=== PATIENT | male | born 1945 | race Caucasian/White ===

== ENCOUNTER → 2018-04-04 | Outpatient (CLI) | payer MEDICARE, BC ==
[2018-04-04 17:06] LABS: LDL Cholesterol,Calculated 72.4 mg/dL (0.0-131.0); VLDL Calculation 18.6 mg/dL (5.00-40.00)
== END | disposition home or self-care (01) ==
LOC: LABWHC1 09:26
PROVIDERS: ATTEND Internal Medicine Clinical Cardiac Electrophysiology
DX: E78.5 Hyperlipidemia, unspecified (principal); I25.10 Atherosclerotic heart disease of native coronary artery without angina pectoris; Z95.1 Presence of aortocoronary bypass graft
CPT/HCPCS: 36415; 80061; 82550

== ENCOUNTER → 2019-09-01 | Outpatient (CLI) | payer MEDICARE ==
--- NOTE | 2019-09-01 16:26 | XR ---
EXAMINATION TYPE: XR chest 2V DATE OF EXAM: 09/01/2019 COMPARISON: September 07, 2015 HISTORY: Shortness of breath TECHNIQUE: Frontal and lateral views of the chest are obtained. FINDINGS: Scattered senescent parenchymal changes noted. Hyperinflation compatible with COPD. No evidence for infiltrate. No evidence for atelectasis. Heart size is stable. Mediastinal structures are stable and grossly unremarkable. No evidence for hilar prominence. Degenerative changes dorsal spine. IMPRESSION: 1. No evidence for acute pulmonary disease.
== END | disposition home or self-care (01) ==
LOC: RADXRMAIN 15:41
PROVIDERS: ATTEND Otolaryngology
DX: Z13.6 Encounter for screening for cardiovascular disorders (principal)
CPT/HCPCS: 71046

== ENCOUNTER 2020-05-06 07:11 | Day surgery (SDC) | payer MEDICARE ==
[2020-05-03 11:56] VITALS: BMI 30.8
--- NOTE | 2020-05-05 22:12 | P.HPIHPCON ---
History of Present Illness H&P Date: 05/05/20 Chief Complaint: Prostate Cancer Mr Martinez is a 74 yo male with hx of skyler 7 (3+4) prostate Cancer, he elected to proceed with EBRT. I discussed with him the option of doing SpaceOR placement. Discussed with him the purpose of SpaceOR is to reduce rectal toxicity to the rectum. Discussed with him the surgery in details, he understood that he might still develop radiation proctitis even with SpaceOR. He understood risk of bleeding, infection. He understood all risks and agreed to proceed. Consent for Procedure: I have explained the operation/procedure to the patient, including the risks, benefits, side effects, alternative therapies (including not receiving the proposed treatment or service), the likelihood of the patient achieving his/her goals, and potential recuperation problems for the procedure/sedation/analgesia, as well as any blood products, if indicated. I also explained to the patient the risks, benefits and side effects of the alternatives, as well as the risks related to not receiving the proposed procedure, care, treatment, or services. Past Medical History Past Medical History: Coronary Artery Disease (CAD), Cancer, CVA/TIA, GERD/Reflux, Hyperlipidemia, Hypertension Additional Past Medical History / Comment(s): prostate ca, CVA post heart cath, states no residual effects History of Any Multi-Drug Resistant Organisms: None Reported Past Surgical History: Back Surgery, Coronary Bypass/CABG, Heart Catheterization Additional Past Surgical History / Comment(s): colonscopy, CABG x3, left carotid endartectomy, "screws in back" Past Anesthesia/Blood Transfusion Reactions: No Reported Reaction Smoking Status: Former smoker - Past Family History Mother Family Medical History: Cancer Sister(s) Family Medical History: Cancer Medications and Allergies Home Medications Medication Instructions Recorded Confirmed Type Alirocumab [Praluent Pen] 75 mg SQ Q15D 05/03/20 05/03/20 History Aspirin [Adult Low Dose Aspirin EC] 81 mg PO DAILY 05/03/20 05/03/20 History Losartan Potassium [Cozaar] 25 mg PO QAM 05/03/20 05/03/20 History Omeprazole [PriLOSEC] 20 mg PO QAM 05/03/20 05/03/20 History Sertraline [Zoloft] 100 mg PO QAM 05/03/20 05/03/20 History Allergies Allergy/AdvReac Type Severity Reaction Status Date / Time clopidogrel Allergy Rash/Hives Verified 05/03/20 11:58 Surgical - Exam - General well developed, well nourished - Eyes PERRL, normal ocular movement - Respiratory normal expansion, normal respiratory effort - Psychiatric oriented to time, oriented to person, oriented to place Assessment and Plan Assessment: 74 yo male with hx of prostate cancer -OR for SpaceOR placement
[~2020-05-06 07:11] MED LIST: DEXAMETHASONE SOD PHOSPHATE 4 MG/ML 1 ML VIAL IV ONE; HYDROmorphone 0.5 MG/0.5 ML SYRINGE IVP PRN; LACTATED RINGERS 1,000 ML IV SCH; ONDANSETRON 4 MG/2 ML VIAL IVP ONE
[2020-05-06 08:05] VITALS: TEMP 98
[2020-05-06] MEDS ORDERED: LIDOCAINE 1% (10MG/ML) FOR IV START INTRADERMA ONE (08:14)
[2020-05-06] MEDS ORDERED: MIDAZOLAM 2 MG/2 ML VIAL ONE (08:31)
[2020-05-06] MEDS ORDERED: fentaNYL (PF) 50 MCG/ML 2 ML AMP ONE (08:31)
[2020-05-06] MEDS ORDERED: PROPOFOL 10 MG/ML 20 ML VIAL IV ONE (08:31)
[2020-05-06] MEDS ORDERED: LIDOCAINE 2% (PF) 20 MG/ML 2 ML VIAL SQ ONE ×2 (08:48)
--- NOTE | 2020-05-06 09:13 | P.OP ---
Date of Procedure: 05/06/20 Preoperative Diagnosis: Adenocarcinoma of the prostate Postoperative Diagnosis: Same Procedure(s) Performed: SpaceOAR Implant Anesthesia: MAC Surgeon: Sivakumar Pitts Estimated Blood Loss (ml): 5 IV fluids (ml): 300 Pathology: none sent Condition: stable Disposition: PACU Indications for Procedure: Mr. Martinez is a 74 yo male with Maite 7 (3+4) prostate cancer. He has elected to proceed with EBRT and now comes for SpaceOAR implant to reduce rectal [place] Operative Findings: 12 mm separation created between prostate and rectum. Description of Procedure: The patient was taken to the operating room and placed in the dorsolithotomy position, with his legs supported in Isak stirrups. The external genitalia was prepped and draped sterilely. The Bruel and Kjaer transrectal ultrasound probe was placed intrarectally. The prostate was imaged. The probe was then placed within the stabilizing stand. A spinal needle was advanced under ultrasonic guidance to the level of the urogenital diaphragm, and lidocaine was used to infiltrate the tissues as the needle was withdrawn. Next, the SpaceOAR needle was passed through the midline of the perineum, 1-2 cm anterior to the anal opening. The needle was slowly advanced under ultrasonic guidance until the needle tip was located within the fat plane between the prostate and rectum, at the level of the mid prostate gland. The needle was confirmed to be midline on the axial imaging. A small amount of normal saline was injected for hydrodissection. Next, the SpaceOAR components were mixed and loaded into the Y connector per protocol. The Y connector was then connected to the needle, and the components were injected slowly over a course of approximately 12 seconds. A total of 10 ml was injected. Significant distance was created between the prostate and rectum, as desired. It should be noted that at no point was there any concern of rectal perforation. The needle was withdrawn, as well as the transrectal ultrasound probe, and the procedure was terminated. The patient tolerated the procedure well and was taken to the recovery room in stable condition.
[2020-05-06 09:39] VITALS: PULSE 63; RESP 18
[2020-05-06 10:11] VITALS: BP 182/85
== END 2020-05-06 10:25 | disposition home or self-care (01) ==
LOC: OR 07:11
PROVIDERS: ATTEND Urology
DX: C61 Malignant neoplasm of prostate (principal); I25.10 Atherosclerotic heart disease of native coronary artery without angina pectoris; K21.9 Gastro-esophageal reflux disease without esophagitis; E78.5 Hyperlipidemia, unspecified; I10 Essential (primary) hypertension; K08.89 Other specified disorders of teeth and supporting structures; Z88.8 Allergy status to other drugs, medicaments and biological substances; Z86.73 Personal history of transient ischemic attack (TIA), and cerebral infarction without residual deficits; Z98.890 Other specified postprocedural states; Z95.1 Presence of aortocoronary bypass graft; Z98.62 Peripheral vascular angioplasty status; Z87.891 Personal history of nicotine dependence; Z79.899 Other long term (current) drug therapy; Z79.82 Long term (current) use of aspirin; Z80.9 Family history of malignant neoplasm, unspecified
CPT/HCPCS: 55874; C1889; J2250; J0690; J2405; J3010; J2704; J2001

== ENCOUNTER → 2020-07-20 | Outpatient (CLI) | payer MEDICARE | END | disposition home or self-care (01) | LOC: LABWHC1 12:04 | PROVIDERS: ATTEND Radiology Radiation Oncology | DX: C61 Malignant neoplasm of prostate (principal); Z87.891 Personal history of nicotine dependence | CPT/HCPCS: 36415; 84153 ==

== ENCOUNTER → 2021-05-14 | Outpatient (CLI) | payer MEDICARE ==
--- NOTE | 2021-05-15 21:43 | MR ---
EXAMINATION TYPE: MR brain and iac wo/w con DATE OF EXAM: 05/14/2021 COMPARISON: CT brain April 08, 2015. HISTORY: R variable ear fullness, fluctuating tinnitis, hearing loss, mastoiditis TECHNIQUE: Multiplanar, multisequence images of the brain and brainstem along with the internal auditory canals are all performed without and with IV contrast, utilizing 10 mL intravenous Gadavist . FINDINGS: Diffusion weighted images demonstrate no evidence of a recent infarct or other diffusion ab normality. There is mild ventricular and sulcal prominence. Multifocal and confluent areas of T2 hyp erintensity are seen throughout the white matter bilaterally greatest at periventricular levels. Ther e is now old infarct inferior right occipital lobe near axial image 14 with focal encephalomalacia. Midline structures demonstrate normal morphology. The craniocervical junction appears within normal limits. Post contrast images demonstrate no abnormal enhancement. The dural venous sinuses appear pa tent. Mild mucosal thickening ethmoid sinuses bilaterally is present. Globes are intact bilaterally. Abnormal fluid signal in the left mastoid air cells greatest posteriorly and inferiorly. Below cochle ar complexes are symmetric and felt within normal limits. There is no suspicious enhancing cerebellop ontine angle mass identified bilaterally. IMPRESSION: 1. Abnormal fluid signal left mastoid air cells raises concern for mastoiditis at this level. Correla te clinically. No abnormal enhancing mass is identified. 2. Mild diffuse cerebral atrophy and mild to moderate chronic small vessel ischemic change with old i nfarct inferior right occipital lobe noted.
== END | disposition home or self-care (01) ==
LOC: RADMRIMAIN 09:36
PROVIDERS: ATTEND Nurse Practitioner Family
DX: G31.9 Degenerative disease of nervous system, unspecified (principal); I67.82 Cerebral ischemia; R93.0 Abnormal findings on diagnostic imaging of skull and head, not elsewhere classified
CPT/HCPCS: 70553; A9585

== ENCOUNTER → 2024-05-29 | Outpatient (CLI) | payer MEDICARE ==
--- NOTE | 2024-05-31 18:27 | PE ---
EXAMINATION TYPE: PET CT fusion skull to thigh DATE OF EXAM: 05/29/2024 CLINICAL INDICATION:Male, 78 years old with history of C61 prostate ca; TECHNIQUE: Following the intravenous administration of 5.07 mCi of Ga-68 Illuccix (PSMA), whole bod y images are performed from the skull base to the Mid thigh. Images are reviewed on the computer in the coronal, axial, and sagittal planes. Reconstructed rotating images are created on independent [employer] rkstation and reviewed on the computer. A non-contrast CT is performed in conjunction with the PET scan. CT DLP: 967 mGycm, Automated exposure control for dose reduction was used. COMPARISON: CT None, PET/CT None, MRI: None FINDINGS: Mediastinal SUV mean is 1.4. Hepatic parenchyma SUV mean is 4.4. SKULL BASE AND NECK: No suspicious radiotracer activity. CHEST, MEDIASTINUM, AND HILAR REGION: No suspicious radiotracer activity. ABDOMEN AND PELVIS: * Right pelvic sidewall lymph node measuring 8 mm in short axis max SUV 49. * Presacral lymph nodes measuring 9 mm max SUV 13.5 and more inferiorly max SUV 26.2 measuring 9 mm. MUSCULOSKELETAL STRUCTURES: No suspicious radiotracer activity. OTHER CT: Severe atherosclerosis of the coronary arteries. Sternotomy changes. Moderate to large hiat al hernia. Nonobstructing left 3 mm calculus. Scattered colonic diverticulosis. Postsurgical changes in the spine. Layering high density in the gallbladder lumen likely representing cholelithiasis and/o r biliary sludge. IMPRESSION: Couple scattered lymph nodes in the pelvis with increased uptake suspicious for metastatic prostate A denocarcinoma. No focal uptake within the prostate gland itself. [facility], , 05/31/2024 6:24 PM
== END | disposition home or self-care (01) ==
LOC: RADPETMAIN 08:06
PROVIDERS: ATTEND Radiology Radiation Oncology
DX: C61 Malignant neoplasm of prostate (principal); Z87.891 Personal history of nicotine dependence; Z92.3 Personal history of irradiation; Z85.46 Personal history of malignant neoplasm of prostate; Z08 Encounter for follow-up examination after completed treatment for malignant neoplasm
CPT/HCPCS: 78815; A9596